=== PATIENT | female | born 1965 | race African-American/Black ===

== ENCOUNTER 2018-07-12 23:39 | Emergency (ER) | payer MEDICAID ==
[~2018-07-12] VITALS: Ht 160 cm; Wt 74.8 kg
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
--- NOTE | 2018-07-12 23:40 | NUR ---
ER MD REYNOSO AT BEDSIDE FOR EVAL
--- NOTE | 2018-07-13 00:17 | NUR ---
BLOOD SENT TO LAB WITH TALK SHOW HOST
[2018-07-13 00:19] LABS: BASOPHILS # (AUTO) 0.1 /CMM (0.0-0.2); BASOPHILS % (AUTO) 1.5 % (0.0-2.0); EOSINOPHILS % (AUTO) 2.7 % (0.0-6.0); HEMATOCRIT 40 % (33-45); HEMOGLOBIN 12.4 g/dL (11.5-14.8); LYMPHOCYTES # (AUTO) 1.5 /CMM (0.8-4.8); LYMPHOCYTES % (AUTO) 31.1 % (20.0-44.0); MEAN CORPUSCULAR HGB CONC 31 g/dl (31.0-36.0); MEAN CORPUSCULAR VOLUME 82 fL (82-100); MONOCYTES # (AUTO) 0.2 /CMM (0.1-1.30); MONOCYTES % (AUTO) 4.7 % (2.0-12.0); PLATELET COUNT (AUTO) 211 /CMM (150-450); RED BLOOD CELL COUNT(AUTO) 4.89 MIL/uL (4.0-5.2)
[2018-07-13 00:30] LABS: CREATININE 0.9 mg/dL (0.6-1.3); POTASSIUM 3.6 mmol/L (3.5-5.1)
[2018-07-13 00:35] LABS: INR 0.96 (0.87-1.13)
[2018-07-13 00:36] LABS: ALBUMIN 3.7 g/dL (3.4-5.0); BILIRUBIN,DIRECT 0.1 mg/dL (0.0-0.2); BILIRUBIN,TOTAL 0.5 mg/dL (0.2-1.0); TOTAL PROTEIN, SERUM 7.6 g/dL (6.4-8.2)
[2018-07-13] MEDS ORDERED: IOHEXOL-300 100 ML VIAL IV ONE (00:44)
[2018-07-13] MEDS ORDERED: IV NS 0.9% 250 ML IV ONE (00:44)
[2018-07-13 03:25] VITALS: BP 126/81
== END 2018-07-13 03:25 | disposition home or self-care (01) ==
LOC: ER 23:46
DX: M79.10 Myalgia, unspecified site (principal); G89.29 Other chronic pain; Z90.49 Acquired absence of other specified parts of digestive tract; Z88.6 Allergy status to analgesic agent; V49.9XXA Car occupant (driver) (passenger) injured in unspecified traffic accident, initial encounter; Y93.89 Activity, other specified; Y92.413 State road as the place of occurrence of the external cause; Y99.8 Other external cause status
CPT/HCPCS: 36415; 71260-TC; 72125-TC; 80048-TC; 80076-TC; 85025-TC; 85730-TC; A4606; J7050; Q9967; Z7610

== ENCOUNTER 2019-09-29 22:39 | Emergency (ER) | payer MEDICAID ==
[~2019-09-29] VITALS: Ht 170.2 cm; Wt 79.4 kg
--- NOTE | 2019-09-29 23:01 | NUR ---
SEEN AND EXAMINED BY DR. MARY
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
[2019-09-29] MEDS ORDERED: ACETAMINOPHEN ES 500 MG TABLET ONE (23:26)
[2019-09-29] MEDS ORDERED: ACETAMINOPHEN ES 500 MG TABLET PO ONE (23:30)
--- NOTE | 2019-09-29 23:33 | NUR ---
XRAY AT BEDSIDE
--- NOTE | 2019-09-29 23:33 | NUR ---
FLU SWAB SAMPLE TAKEN TO LAB
[2019-09-30] MEDS ORDERED: AZITHROMYCIN 250 MG TABLET PO ONE (01:00)
[2019-09-30] MEDS ORDERED: OSELTAMIVIR PHOSPHATE 75 MG CAPSULE PO ONE (01:00)
[2019-09-30] MEDS ORDERED: OSELTAMIVIR PHOSPHATE 75 MG CAPSULE ONE (01:01)
[2019-09-30] MEDS ORDERED: AZITHROMYCIN 250 MG TABLET ONE (01:01)
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
[2019-09-30 01:10] VITALS: BP 124/74
== END 2019-09-30 01:11 | disposition home or self-care (01) ==
LOC: ER 22:44
DX: J18.9 Pneumonia, unspecified organism (principal); J11.1 Influenza due to unidentified influenza virus with other respiratory manifestations; Z88.6 Allergy status to analgesic agent
CPT/HCPCS: 71045-TC